=== PATIENT | male | born 1990 | race Caucasian/White ===

== ENCOUNTER 2018-10-24 19:18 | Emergency (ER) | payer OTHER ==
[~2018-10-24] VITALS: Ht 175.3 cm; Wt 77.1 kg
--- NOTE | 2018-10-24 19:20 | NUR ---
REPORT FROM [facility], PT STABLE , VSS, PT IN NO DISTRESS, WAS FOUND SLEEPING ON GROUND BY PD. PT TO WAIT IN LOBBY.
--- NOTE | 2018-10-24 19:35 | NUR ---
ANITHA PT WAS FOUND SLEEPING ON SIDEWALK PT STATES HE TOOK HIS MEDS GEODON AND TRAZADONE AND WAS DROWSY . PT C/O LEFT ANKLE/LOWER LEG PAIN NOW. DENIES TRAUMA OR INJURY. VSS; PATIENT POSITIONED FOR COMFORT; HOB ELEVATED; BEDRAILS UP X1; BED DOWN. ER MD MADE AWARE OF PT STATUS.
[2018-10-24 19:36] VITALS: BP 118/57
--- NOTE | 2018-10-24 20:36 | NUR ---
X-Ray at bedside.
--- NOTE | 2018-10-24 21:20 | NUR ---
RECEIVED REPORT FROM NORMA VILLASENOR. ASSUMED CARE AT THIS TIME.
--- NOTE | 2018-10-24 21:25 | NUR ---
Amber lees in [facility] - 10/24/18 at 2210 by PA RECEIVED REPORT FROM NORMA VILLASENOR. ASSUMED CARE AT THIS TIME.
--- NOTE | 2018-10-24 21:40 | NUR ---
PT UNABLE TO PROVIDE URINE SAMPLE. GIVEN PO FLUIDS.
--- NOTE | 2018-10-24 22:07 | NUR ---
Dr. Gill examining patient.
--- NOTE | 2018-10-24 22:19 | NUR ---
Patient discharged with v/s stable. Written and verbal after care instructions given and explained. Patient verbalized understanding. Ambulatory with steady gait. All questions addressed prior to discharge. Advised to follow up with PMD.
[2018-10-24 22:20] VITALS: BP 108/61
== END 2018-10-24 22:19 | disposition home or self-care (01) ==
LOC: MED 19:18
DX: S90.02XA Contusion of left ankle, initial encounter (principal); X58.XXXA Exposure to other specified factors, initial encounter; Y93.89 Activity, other specified; Y92.89 Other specified places as the place of occurrence of the external cause; Y99.8 Other external cause status
CPT/HCPCS: 73610; 99283; Q0092

== ENCOUNTER 2019-10-03 18:54 | Emergency (ER) | payer OTHER ==
[~2019-10-03] VITALS: Ht 177.8 cm; Wt 72.6 kg
[2019-10-03 18:55] VITALS: BP 137/92
--- NOTE | 2019-10-03 18:55 | NUR ---
Patient BIBA ALS, transferred to bed 5. RN evaluating the patient at bedside.
--- NOTE | 2019-10-03 19:12 | NUR ---
Dr. Hayes is evaluating the patient at bedside.
[2019-10-03] MEDS ORDERED: NACL 0.9% 1,000 ML IV ONE (19:15)
--- NOTE | 2019-10-03 19:20 | NUR ---
29 YEAR OLD MALE BIBA STATES THAT HE DOES NOT KNOW WHY THEY BROUGHT HIM TO THE HOSPITAL. PT DENIES ANY COMPLAINTS SUCH CP, SOB, FEVER, OR PAIN. PT HAS DIFFICULTY ANSWERING QUESTIONS HE SEEMS DISTRACTED AT TIMES. PT AOX4, BREATHING EVEN AND UNLABORED, SKIN WARM AND DRY. BED IN LOWEST POSITION, LOCKED, BED RAIL UPX1. PMH - DENIES ALLERGIES - NKA
[2019-10-03 19:38] LABS: BASOPHILS % (AUTO) 0.5 % (0.0-2.0); EOSINOPHILS # (AUTO) 0.1 K/uL (0-0.4); EOSINOPHILS % (AUTO) 1.1 % (0.0-4.0); HEMATOCRIT 42.4 % (36-52); HEMOGLOBIN 14.2 g/dL (12.0-18.0); LYMPHOCYTES # (AUTO) 2.1 K/uL (2.0-11.5); LYMPHOCYTES % (AUTO) 23.6 % (20.5-51.1); MEAN CORPUSCULAR HEMOGLOBIN 30 pg (27-31); MEAN CORPUSCULAR HGB CONC 34 g/dL (33-37); MEAN CORPUSCULAR VOLUME 90.1 fL (80-94); MONOCYTES # (AUTO) 0.6 K/uL (0.8-1.0); MONOCYTES % (AUTO) 6.9 % (1.7-9.3); NEUTROPHILS % (AUTO) 67.9 % (42.2-75.2); PLATELET COUNT (AUTO) 248 K/uL (140-450); RED CELL DISTRIBUTION WIDTH 13.5 % (11.6-13.7); WHITE BLOOD COUNT (AUTO) 8.8 K/uL (4.8-10.8)
--- NOTE | 2019-10-03 19:45 | NUR ---
PT ALERT AND AWAKE, BREATHING EVEN AND UNLABORED
--- NOTE | 2019-10-03 19:47 | NUR ---
XRAY AT BEDSIDE
[2019-10-03 19:58] LABS: APPEARANCE,URINE CLEAR (CLEAR); BILIRUBIN,URINE 1+ (NEGATIVE); BLOOD, URINE TRACE-I (NEGATIVE); COLOR,URINE YELLOW (YELLOW); LEUKOCYTE ESTERASE ,URINE NEGATIVE (NEGATIVE); NITRITE, URINE NEGATIVE (NEGATIVE); PH,URINE 5.5 (5.0-9.0); UGLUCOSE NEGATIVE (NEGATIVE)
[2019-10-03 20:07] LABS: ALBUMIN 3.9 g/dL (3.4-5.0); ASPARTATE AMINOTRANSFERASE 18 U/L (15-37); CARBON DIOXIDE 30.3 mmol/L (21-32); CHLORIDE 103 mmol/L (98-107); GFR ARICAN-AMERICAN 114 mL/min (>90); GLUCOSE 115 mg/dL (74-106); POTASSIUM 3.3 mmol/L (3.5-5.1); SODIUM SERUM 141 mmol/L (136-145); TOTAL BILIRUBIN 2.2 mg/dL (0.0-1.0); UREA NITROGEN, BLOOD 18 mg/dL (7-18)
--- NOTE | 2019-10-03 20:14 | NUR ---
PT GIVEN LYNN
[2019-10-03 20:26] LABS: BARBITURATE, URINE NEGATIVE ng/ml (NEG <=200); BENZODIAZEPINE, URINE NEGATIVE ng/mL (NEG <=200); CANNABINOID, URINE NEGATIVE ng/mL (NEG <=50); COCAINE, URINE NEGATIVE ng/mL (NEG <=300); OPIATE, URINE NEGATIVE ng/mL (NEG <=2000); PHENCYCLIDINE SCREEN,URINE NEGATIVE ng/mL (NEG <=25)
[2019-10-03 20:27] LABS: ACETAMINOPHEN < 0.5 ug/ml (10-30); SALICYLATE < 2.8 mg/dL (2.8-20.0)
--- NOTE | 2019-10-03 20:46 | NUR ---
PT ALERT AND AWAKE, BREATHING EVEN AND UNLABORED
--- NOTE | 2019-10-03 22:21 | NUR ---
PT RESTING WITH EYES CLOSED, BREATHING EVEN AND UNLABORED
--- NOTE | 2019-10-04 00:16 | NUR ---
pt for d/c per dr akilah hogue. pt h/l d/c.
--- NOTE | 2019-10-04 00:17 | NUR ---
Patient discharged with v/s stable. Written and verbal after care instructions given and explained. Patient verbalized understanding. Ambulatory with steady gait. All questions addressed prior to discharge. Advised to follow up with PMD. Call 911 or go to any nearest ED or urgent care if symptoms worsens.
[2019-10-04 00:21] VITALS: BP 126/83
== END 2019-10-04 00:16 | disposition home or self-care (01) ==
LOC: MED 18:54
DX: F15.90 Other stimulant use, unspecified, uncomplicated (principal); R41.82 Altered mental status, unspecified
CPT/HCPCS: 36415; 71045; 80053; 80305; 81003; 82550; 84484; 85025; 93005; 96360; 99285; G0480; G0482; J7030; Q0092